=== PATIENT | female | born 1950 | race African-American/Black ===

== ENCOUNTER 2018-02-09 08:09 | Emergency (ER) | payer MEDICARE, OTHER ==
[~2018-02-09] VITALS: Ht 162.6 cm; Wt 75.0 kg
[~2018-02-09 08:09] MED LIST: ASPI-556 PO; BENA40TA9 PO; HYDR25TA PO; SIMV40TA5 PO
[2018-02-09] MEDS ORDERED: KETOROLAC TROMETHAMINE 60 MG/2 ML VIAL IM ONE (09:15)
[2018-02-09 09:37] VITALS: BP 148/89
== END 2018-02-09 09:48 | disposition home or self-care (01) ==
LOC: EMS 08:17
DX: S83.401A Sprain of unspecified collateral ligament of right knee, initial encounter (principal); I10 Essential (primary) hypertension; E78.00 Pure hypercholesterolemia, unspecified; Z98.51 Tubal ligation status; Z88.0 Allergy status to penicillin; Z79.82 Long term (current) use of aspirin; Z79.899 Other long term (current) drug therapy; X58.XXXA Exposure to other specified factors, initial encounter; Y93.89 Activity, other specified; Y92.488 Other paved roadways as the place of occurrence of the external cause; Y99.8 Other external cause status
CPT/HCPCS: 96372; 99283; J1885